=== PATIENT | male | born 1980 | race Caucasian/White ===

== ENCOUNTER 2024-03-05 08:20 | Outpatient (CLI) | payer MEDICAID | END 2024-03-05 23:59 | disposition home or self-care (01) | LOC: MRI02 08:20 | PROVIDERS: ATTEND Physician Assistant Surgical | DX: M19.032 Primary osteoarthritis, left wrist (principal); G56.02 Carpal tunnel syndrome, left upper limb; M25.532 Pain in left wrist | CPT/HCPCS: 73221 ==